=== PATIENT | male | born 1980 | race Caucasian/White ===

== ENCOUNTER 2023-12-22 07:15 | Emergency (ER) | payer OTHER, SELFPAY ==
--- NOTE | 2023-12-22 06:54 | ECG_ITS ---
[facility] Test Date: 2023-12-22 Pat Name: Damion Mckinnon Department: Room: Gender: Male Office Technician: : 1980 Requested By: Chandra De La Torre Order Number: [id number] Jennifer MD: Jonathan Carter M.D. Measurements Intervals [place] Rate: 67 P: 22 FL: 183 QRS: 90 QRSD: 103 T: 52 QT: 398 QTc: 422 Interpretive Statements SINUS RHYTHM No previous ECG available for comparison Electronically Signed On 12-22-2023 8:35:48 CDT by Jonathan Carter M.D. [id number]
[2023-12-22 07:19] VITALS: BP 132/69; PULSE 66; RESP 15; TEMP 36.6; O2SAT 94; BMI 44.3
--- NOTE | 2023-12-22 07:21 | XRR_ITS ---
PROCEDURE INFORMATION: Exam: XR Chest Exam date and time: 12/22/2023 7:31 AM Age: 43 years old Clinical indication: Cough and dyspnea; Patient HX: Hurts all over; Additional info: Dyspnea/cough. No history of recent trauma or surgery is provided. TECHNIQUE: Imaging protocol: Radiologic exam of the chest. 1image(s) are provided. Views: 1 view. COMPARISON: No relevant prior studies available. FINDINGS: Lungs: No lobar consolidation is appreciated. There is some subtle ground-glass, interstitial opacification for example of the right mid lung zone suggestive of some early interstitial, peribronchial inflammation. Pleural spaces: No pneumothorax or significant pleural effusion is appreciated. Heart/Mediastinum: The cardiomediastinal silhouette is upper normal in size.No cardiac decompensation is appreciated. Diaphragm: The hemidiaphragms are symmetric. Bones/joints: Osseous alignment is maintained. No displaced fracture or dislocation is appreciated. There is some thoracic spondylosis present. Soft tissues: No radiopaque foreign body or subcutaneous emphysema is appreciated. XR/XR chest 1V portable [id number] IMPRESSION: There is some early interstitial, peribronchial inflammatory appearance of the right mid lung zone. No lobar consolidation is appreciated.
--- NOTE | 2023-12-22 07:29 | W.ED.GENADLT ---
HPI - General Adult General: Chief complaint: General Medical Stated complaint: body aches Time Seen by Provider: 12/22/23 07:17 Source: patient Mode of arrival: ambulatory History of Present Illness: 43-year-old male presents emergency room complaining of generalized bodyaches. He does not localize any particular area that is more bothersome than another. He has had symptoms for over a month. He was seen at [facility] he has been referred to rheumatology. From discussing with him he said there is muscle damage he said the lab was elevated. Suspect it was a CPK we do not have access to those labs and initially but are seeking them. He denies any specific chest pain or shortness of breath no fever sweats chills. No abdominal pain no vomiting or diarrhea. No history of any inflammatory diseases. Onset (ago): month(s) Severity: severe Quality: aching Pain Consistency: constant Relieving factors: none Exacerbating factors: none Associated symptoms: Deny chest pain, confusion, cough, diaphoresis, decreased appetite, dyspnea, fevers/chills, headache(s), malaise, nausea, rash, palpitations, seizures, short of breath, syncope, vomiting or weakness Treatments prior to arrival: none Review of Systems Const: Denies: fever(s), chills, malaise or diaphoresis Card: Denies: chest pain, palpitations or syncope Resp: Denies: dyspnea GI: Denies: abdominal pain, nausea or vomiting : Denies: dysuria, urinary frequency or urinary urgency Musc: Denies: neck pain or back pain Skin/Breast: Denies: rash Neuro: Denies: headache(s) or confusion Physical Exam Const: COMMON NORMALS: no acute distress GENERAL APPEARANCE: cooperative and comfortable ORIENTATION/CONSCIOUSNESS: Yes awake, Yes oriented to person, Yes oriented to place and Yes oriented to time HENMT: COMMON NORMALS: normocephalic, atraumatic and hearing grossly normal bilaterally HEAD & SCALP: normocephalic and atraumatic Resp: COMMON NORMALS: normal respiratory effort, No retractions, No use of accessory muscles and clear to auscultation bilaterally AUSCULTATION: clear to auscultation bilaterally Cardio: COMMON NORMALS: regular rate, regular rhythm and No murmurs present (Cardio) RATE: regular rate RHYTHM: regular rhythm GI: COMMON NORMALS: Soft to palpation and No hepatosplenomegaly present AUSCULTATION: Yes normoactive bowel sounds PALPATION: Yes Soft to palpation, No Tenderness to palpation present (GI), No Guarding due to palpation present (GI) and Yes No hepatosplenomegaly present Extremity: COMMON NORMALS: normal to inspection, capillary refill normal, no clubbing, cyanosis or edema, no calf tenderness and no pedal edema Neuro: SENSORIUM/ORIENTATION: Yes oriented to person, Yes oriented to place and Yes oriented to time Skin: COMMON NORMALS: no rashes or lesions noted GENERAL SKIN EXAM: no rashes or lesions noted Course Vital Signs: Vital signs: Vital Signs Temperature 97.8 F 12/22/23 07:19 Pulse Rate 68 12/22/23 09:56 Respiratory Rate 15 12/22/23 07:19 Blood Pressure 104/66 12/22/23 09:56 Pulse Oximetry 98 12/22/23 09:56 Oxygen Delivery Me thod Room Air 12/22/23 08:08 MDM - General Adult Medical Decision Making Labs obtained from [facility] CPK was upper 300 is similar today sed rate and CRP are decreased from when he was at the office his hemoglobin and creatinine remained stable. No acute findings at this time given 10 mg dexamethasone started on p.o. prednisone taper to begin tomorrow we will put in a consult for rheumatology. Chest x-ray reviewed no significant respiratory symptoms at this time. Medical Records I reviewed the patient's medical records. Lab Data I reviewed the patient's lab results. 12/22/23 07:53 12/22/23 07:53 Radiology Impressions Chest X-Ray 12/22/23 07:21 IMPRESSION: There is some early interstitial, peribronchial inflammatory appearance of the right mid lung zone. No lobar consolidation is appreciated. Laboratory Results WBC 6.50 10^3/uL (3.29-11.43) 12/22/23 07:53 RBC 4.81 10^6/uL (3.85-5.65) 12/22/23 07:53 Hgb 14.60 g/dL (11.27-16.99) 12/22/23 07:53 Hct 42.6 % (37-53) 12/22/23 07:53 MCV 88.6 fl (82-101) 12/22/23 07:53 MCH 30.4 pg (27-33) 12/22/23 07:53 MCHC 34.3 g/dL (30-55) 12/22/23 07:53 RDW 11.9 % (12.1-15.1) L 12/22/23 07:53 Plt Count 235 10^3/cmm (157-399) 12/22/23 07:53 MPV 10.1 fL (7.4-10.4) 12/22/23 07:53 Neut % (Auto) 51.4 % 12/22/23 07:53 Lymph % (Auto) 33.8 % 12/22/23 07:53 Mercer % (Auto) 11.5 % 12/22/23 07:53 Eos % (Auto) 2.5 % 12/22/23 07:53 Baso % (Auto) 0.6 % 12/22/23 07:53 Neut # (Auto) 3.34 10^3/uL (1.8-7.7) 12/22/23 07:53 Lymph # (Auto) 2.2 10^3/uL (0.8-4.8) 12/22/23 07:53 Mercer # (Auto) 0.8 10^3/uL (0.2-0.9) 12/22/23 07:53 Eos # (Auto) 0.2 10^3/uL (0.0-0.8) 12/22/23 07:53 Baso # (Auto) 0.0 10^3/uL (0.0-0.1) 12/22/23 07:53 Nucleated RBC % (auto) 0 % 12/22/23 07:53 Nucleated RBCs # 0.0 /100WBC 12/22/23 07:53 ESR 4 mm/hr (0-10) 12/22/23 07:53 Sodium 139 mmol/L (136-145) 12/22/23 07:53 Potassium 4.1 mmol/L (3.5-5.1) 12/22/23 07:53 Chloride 102 mmol/L (98-107) 12/22/23 07:53 Carbon Dioxide 24 mmol/L (22-29) 12/22/23 07:53 Anion Gap 17.1 (5-19) 12/22/23 07:53 BUN 15 mg/dL (6-20) 12/22/23 07:53 Creatinine 0.8 mg/dL (0.7-1.2) 12/22/23 07:53 GFR Calculation 106.0 mL/min (90-130) 12/22/23 07:53 Glucose 105 mg/dL (65-115) 12/22/23 07:53 Calculated Osmolality 289 mOsm/kg (285-295) 12/22/23 07:53 Lactic Acid 1.2 mmol/L (0.5-2.2) 12/22/23 07:53 Calcium 8.6 mg/dL (8.5-10.5) 12/22/23 07:53 Total Bilirubin 1.0 mg/dL (0.15-1.2) 12/22/23 07:53 AST 24 U/L (0-40) 12/22/23 07:53 ALT 35 U/L (0-41) 12/22/23 07:53 Alkaline Phosphatase 90 U/L (40-130) 12/22/23 07:53 Creatine Kinase 382 U/L (39-308) H* 12/22/23 07:53 Troponin T Baseline 10 ng/L (0-15) 12/22/23 07:53 C-Reactive Protein 3.0 mg/L (0.0-4.9) 12/22/23 07:53 Total Protein 7.0 g/dL (6.6-8.7) 12/22/23 07:53 Albumin 4.4 g/dL (3.5-5.2) 12/22/23 07:53 Globulin 2.6 g/dL (1.3-4.6) 12/22/23 07:53 Lipase 19 U/L (13-60) 12/22/23 07:53 Urine Color Straw (Yellow) 12/22/23 08:57 Urine Appearance Clear (CLEAR) 12/22/23 08:57 Urine pH 5 (5-7) 12/22/23 08:57 Ur Specific Java 1.005 (1.005-1.030) 12/22/23 08:57 Urine Protein Neg (Negative) 12/22/23 08:57 Urine Glucose (UA) Norm (Normal) 12/22/23 08:57 Urine Ketones Negative (Negative) 12/22/23 08:57 Urine Blood Neg (Negative) 12/22/23 08:57 Urine Nitrate Negative (Negative) 12/22/23 08:57 Urine Bilirubin Neg (Negative) 12/22/23 08:57 Urine Urobilinogen Neg mg/dL (Negative) 12/22/23 08:57 Ur Leukocyte Esterase Negative (Negative) 12/22/23 08:57 Coronavirus 229E (PCR) Not detected (NOT DETECT) 12/22/23 08:10 Influenza Type A Ag negative (Negative) 12/22/23 08:10 Influenza Type B Ag negative (Negative) 12/22/23 08:10 SARS-CoV-2 (PCR) Not detected (NOT DETECT) 12/22/23 08:10 All radiology interpretation(s) finalized by discharge Discharge Plan Discharge Patient Disposition: Home Clinical Impression: Myositis, Elevated CPK Condition: Stable Prescriptions: New prednisone 20 mg tablet 20 mg PO TID Qty: 15 0RF Rx Instructions: 1 p.o. 3 times daily x3 days, 1 p.o. twice daily x2 days, 1 p.o. daily x2 days Discharge Orders: Discharge ED (Routine); Ordered 12/22/23 Ordered By: Chandra Angulo Referrals: Mike Holt MD [Primary Care Provider] - Patient Instructions: Opioid Safety, Pain Management Activity Restrictions/Additional Instructions: Thank you for choosing [facility] for your healthcare needs today. Please realize this is an emergency room and that we are providing you with a medical screening exam and this may not be complete and all inclusive of all the testing and or work up that you may need to determine your ailment or severity of your illness. It is very important that you follow up as instructed or that you return to the Emergency Department should you have concerns or if your condition changes or worsens in any way. You were seen today for generalized muscle aches. Your CPK is mildly elevated consistent with laboratory result that you had while at [facility]. You have inflammatory markers are decreased the remainder of your labs including kidney function and hemoglobin are all normal. You were given a single dose of steroid here and a steroid oral taper to begin tomorrow follow-up with rheumatology as scheduled with by your primary care doctor Coding Level of Care Code ED Customer Associate for Daisy Bedoya
[2023-12-22] MEDS: sodium chloride 0.9% 1,000 ML 999 ML IV (08:01)
[2023-12-22 08:03] LABS: Basophils % 0.6 %; Eosinophils # 0.2 10^3/uL (0.0-0.8); Eosinophils % 2.5 %; Hematocrit 42.6 % (37-53); Lymphocytes # 2.2 10^3/uL (0.8-4.8); Lymphocytes % 33.8 %; Mean Corpuscular HGB Conc 34.3 g/dL (30-55); Mean Corpuscular Hemoglobin 30.4 pg (27-33); Mean Corpuscular Volume 88.6 fl (82-101); Mean Platelet Volume 10.1 fL (7.4-10.4); Monocytes # 0.8 10^3/uL (0.2-0.9); Monocytes % 11.5 %; Neutrophils # 3.34 10^3/uL (1.8-7.7); Neutrophils % 51.4 %; Nucleated Red Blood Cells % 0 %; Platelet Count 235 10^3/cmm (157-399); Red Blood Count 4.81 10^6/uL (3.85-5.65); Red Cell Distribution Width 11.9 % (12.1-15.1)
[2023-12-22 08:08] VITALS: BP 131/81; PULSE 63; O2SAT 96
[2023-12-22 08:11] LABS: Erythrocyte Sedimentation Rate 4 mm/hr (0-10)
[2023-12-22 08:19] LABS: Lactic Sepsis W/Reflex 1.2 mmol/L (0.5-2.2)
[2023-12-22 08:20] LABS: Alanine Aminotransferase 35 U/L (0-41); Albumin Level 4.4 g/dL (3.5-5.2); Alkaline Phosphatase 90 U/L (40-130); Anion Gap 17.1 (5-19); Aspartate Amino Transferase 24 U/L (0-40); Blood Urea Nitrogen 15 mg/dL (6-20); Calcium 8.6 mg/dL (8.5-10.5); Carbon Dioxide 24 mmol/L (22-29); Chloride 102 mmol/L (98-107); Creatinine Clr Calc Pharmacy 164.7816; Globulin 2.6 g/dL (1.3-4.6); Glucose 105 mg/dL (65-115); Lipase 19 U/L (13-60); Osmolality Calculated 289 mOsm/kg (285-295); Potassium 4.1 mmol/L (3.5-5.1); Sodium 139 mmol/L (136-145)
[2023-12-22 08:22] LABS: Troponin(5th) Baseline 10 ng/L (0-15)
[2023-12-22 08:37] LABS: Influenza A by IFA negative (Negative); Influenza B by IFA negative (Negative)
[2023-12-22 08:38] LABS: Creatine Phosphokinase 382 U/L (39-308)
[2023-12-22 09:02] LABS: Add Urine Microscopic? NO; Charge for UA Resulting for Rev
[2023-12-22] MEDS: ketorolac 30 mg/mL INJ IVP (09:28)
[2023-12-22 09:32] LABS: Bilirubin Urine Neg (Negative); Blood Urine Neg (Negative); Glucose Urine UA Norm (Normal); Ketones Urine Negative (Negative); Leukocyte Esterase Urine Negative (Negative); Nitrate Urine Negative (Negative); Protein Urine Neg (Negative); Specific Gravity, Urine 1.005 (1.005-1.030); Urine Appearance Clear (CLEAR); Urine Color Straw (Yellow); Urobilinogen Urine Neg (Negative); pH Urine 5 (5-7)
--- NOTE | 2023-12-22 09:50 | DCPLANNER ---
A message was sent to rheumatology on 12/22/23 at 0950. [facility] to contact patient for appt
[2023-12-22] MEDS: dexamethasone 10 mg/mL INJ IM (09:54)
[2023-12-22 09:56] VITALS: BP 104/66; PULSE 68; O2SAT 98
[2023-12-22 10:07] LABS: Adenovirus Not Detected (NOT DETECT); Chlamydia Pneumoniae Not Detected (NOT DETECT); Coronavirus 229E,HKU1,NL63,OC4 Not Detected (NOT DETECT); Human Metapneumovirus Not Detected (NOT DETECT); Human Rhinovirus/Enterovirus Not Detected (NOT DETECT); Influenza A Not Detected (NOT DETECT); Influenza A H1 Not Detected (NOT DETECT); Influenza A H1-2009 Not Detected (NOT DETECT); Influenza A H3 Not Detected (NOT DETECT); Influenza B Not Detected (NOT DETECT); Mycoplasma Pneumoniae Not Detected (NOT DETECT); Parainfluenza Virus Type 1 Not Detected (NOT DETECT); Parainfluenza Virus Type 2 Not Detected (NOT DETECT); Parainfluenza Virus Type 3 Not Detected (NOT DETECT); Parainfluenza Virus Type 4 Not Detected (NOT DETECT); Respiratory Syncytial Virus A Not Detected (NOT DETECT); Respiratory Syncytial Virus B Not Detected (NOT DETECT); SARS-COV-2 Not Detected (NOT DETECT)
== END 2023-12-22 09:58 | disposition home or self-care (01) ==
PROVIDERS: Emergency Provider Family Medicine; PCP Family Medicine
DX: M60.9 Myositis, unspecified (principal); R74.8 Abnormal levels of other serum enzymes; Z11.52 Encounter for screening for COVID-19
CPT/HCPCS: 36415; 71045; 80053; 81003; 82550; 83605; 83690; 84484; 85025; 85651; 86140; 87635; 87804; 93005; 96361; 96372; 96374; 99285; J1100; J1885; J7030

== ENCOUNTER 2024-04-05 23:05 | Emergency (ER) | payer OTHER, SELFPAY ==
[2024-04-05 23:07] VITALS: BP 155/105; PULSE 76; RESP 16; TEMP 36.6; O2SAT 96; BMI 43.4
--- NOTE | 2024-04-05 23:21 | USR_ITS ---
PROCEDURE INFORMATION: Exam: US Duplex Left Lower Extremity Veins, Limited Exam date and time: 04/05/2024 11:42 PM Age: 44 years old Clinical indication: Leg, lower; Left; Patient HX: No history of dvt per patient. Pain in entire below knee lt leg. No particular area, pain x 5 hours. No trauma. No erythema. No edema. ; Additional info: Lle pain/atraumatic TECHNIQUE: Imaging protocol: Real-time duplex ultrasound of the left extremity with 2-D winn scale, color Doppler flow and spectral waveform analysis including responses to compression and other maneuvers (when performed) with image documentation. Limited exam focused on the left lower extremity veins. COMPARISON: No relevant prior studies available. FINDINGS: Left deep veins: Unremarkable. The common femoral, femoral, proximal profunda femoral and popliteal veins are patent without thrombus. Normal Doppler waveforms. Normal compressibility and/or augmentation response. Superficial veins: Greater saphenous vein at the saphenofemoral junction is patent without thrombus. Soft tissues: Unremarkable. US/CV venous duplex [facility] [id number] IMPRESSION: No evidence of deep vein thrombosis.
--- NOTE | 2024-04-05 23:24 | ED_ITS ---
HPI - Extremity Problem General: Chief complaint: Extremity Problem,Nontraumatic Stated complaint: Left Leg Pain Time Seen by Provider: 04/05/24 23:09 Source: patient Mode of arrival: ambulatory Limitations: no limitations History of Present Illness: Patient is a 44-year-old male presenting to the emergency department complaining of atraumatic left lower extremity pain beginning tonight. Patient states he was just sitting down when he had sudden onset of pain, which started in the left knee and has spread distally. He has no history of blood clots and denies any recent history of long travel, plane travel, or other reportable history. He did take an oxycodone for his pain that he had leftover from a previous surgery, and states this did not help. He does have a history of bunionectomy on the left foot. Currently his pain is noted to be diffuse at this time, worse at the left calf. He has never had this issue before. No recent trauma. Pain currently is a 10/10 and is noted to be aching and throbbing. No other alleviating or exacerbating factors noted at this time. MD Complaint: extremity pain (Left lower extremity) Onset (ago): minute(s) Pain Consistency: constant Severity scale (1-10): 10 Quality: aching and other (Throbbing) Radiation: distal Associated symptoms: Reports no associated symptoms; Deny chest pain, fever(s) or rash Review of Systems General: Reports: 10 or more systems reviewed and unremarkable except in HPI and below Const: Denies: fever(s), chills or fatigue Eyes: Denies: change in vision ENMT: Denies: throat pain, ear or mastoid pain or nasal discharge Card: Denies: chest pain, palpitations, swelling of feet/ankles or lightheadedness Resp: Denies: dyspnea, productive cough or wheezing GI: Denies: abdominal pain, nausea, vomiting, diarrhea or constipation : Denies: flank pain, difficulty urinating, dysuria or urinary frequency Musc: Reports: extremity pain (LLE); Denies: neck pain or back pain Skin/Breast: Denies: rash Neuro: Denies: headache(s), numbness in extremities or weakness in extremities PFS ED PFSH: Medical History Psychiatric care Physical Exam Const: COMMON NORMALS: no acute distress, patient oriented x3 and no limitations GENERAL APPEARANCE: cooperative, comfortable and well developed ORIENTATION/CONSCIOUSNESS: Yes awake, Yes oriented to person, Yes oriented to place and Yes oriented to time HENMT: COMMON NORMALS: normocephalic, atraumatic and hearing grossly normal bilaterally HEAD & SCALP: normocephalic and atraumatic Eye: COMMON NORMALS: Equal, round and reactive pupils present, EOMs intact bilaterally and conjunctivae normal CONJUNCTIVA: Yes conjunctivae normal PUPIL: Yes Equal, round and reactive pupils present Neck/C-Spine: COMMON NORMALS: full ROM, supple and no JVD Resp: COMMON NORMALS: normal respiratory effort, No retractions, No use of accessory muscles and clear to auscultation bilaterally AUSCULTATION: clear to auscultation bilaterally Cardio: COMMON NORMALS: no JVD, regular rate, regular rhythm, No clicks present (Cardio), No murmurs present (Cardio) and No rub (Cardio) RATE: regular rate RHYTHM: regular rhythm Extremity: NARRATIVE EXTREMITY EXAM: Left calf tenderness, no palpable cord. Range of motion limited due to his pain. No signs of trauma. Postop scar present to the dorsum of the left foot. No joint laxity. Neuro: COMMON NORMALS: patient oriented x3, moves all extremities, no focal motor deficits and no sensory deficits noted SENSORIUM/ORIENTATION: Yes oriented to person, Yes oriented to place and Yes oriented to time Psych: COMMON NORMALS: mental status grossly normal and Normal thought process present THOUGHT PROCESS: Normal thought process present Skin: COMMON NORMALS: no rashes or lesions noted GENERAL SKIN EXAM: no rashes or lesions noted Course Vital Signs: Vital signs: Vital Signs Temperature 97.8 F 04/05/24 23:07 Pulse Rate 61 04/06/24 00:44 Respiratory Rate 17 04/06/24 00:44 Blood Pressure 127/92 04/06/24 00:44 Pulse Oximetry 97 04/06/24 00:44 Oxygen Delivery Me thod Room Air 04/06/24 00:44 MDM - Extremity (Nontraumatic) Medical Decision Making Patient presented for atraumatic left lower extremity pain beginning just prior to arrival. No history of blood clots and no concerning history. Vitals were normal. Physical examination just revealed some tenderness to palpation of the left lower extremity, worse at the calf. Ultrasound was negative for DVT. Patient is instructed to follow-up with primary care for further evaluation and return with any new or worsening. XR interpretation done by ED provider, pending radiology final review Discharge Plan Discharge Patient Disposition: Home Clinical Impression: Acute pain of left lower extremity Condition: Stable Prescriptions: No Action prednisone 20 mg tablet 20 mg PO TID Qty: 15 0RF Rx Instructions: 1 p.o. 3 times daily x3 days, 1 p.o. twice daily x2 days, 1 p.o. daily x2 days Discharge Orders: Discharge ED (Routine); Ordered 04/06/24 Ordered By: Domingo Mishra Referrals: Mike Holt MD [Primary Care Provider] - Discharge Diet: Usual diet Discharge Activity: Increase activity as tolerated Patient Instructions: Opioid Safety, Pain Management Activity Restrictions/Additional Instructions: Ultrasound today negative for blood clot. Continue taking your prescribed pain medications at home. Follow-up with primary care provider for further evaluation. Return with any new or worsening symptoms. Stand Alone Forms: Work/School Release Coding Level of Care Code ED Softball Umpire for Daisy Bedoya
[2024-04-05] MEDS: ketorolac 60 mg/2 mL INJ IM (23:35)
[2024-04-06 00:44] VITALS: BP 127/92; PULSE 61; RESP 17; O2SAT 97
[2024-04-06 01:10] VITALS: BP 164/91; PULSE 60; O2SAT 95
== END 2024-04-06 01:11 | disposition home or self-care (01) ==
PROVIDERS: Emergency Provider Physician Assistant; PCP Family Medicine
DX: M79.605 Pain in left leg (principal)
CPT/HCPCS: 93971; 96372; 99284; J1885

== ENCOUNTER 2024-04-09 22:23 | Emergency (ER) | payer OTHER, SELFPAY ==
[2024-04-09 22:27] VITALS: BP 152/89; PULSE 74; RESP 16; TEMP 36.6; O2SAT 97
--- NOTE | 2024-04-10 01:11 | XRR_ITS ---
PROCEDURE INFORMATION: Exam: XR Left Knee Exam date and time: 04/10/2024 1:39 AM Age: 44 years old Clinical indication: Pain; Knee; Left TECHNIQUE: Imaging protocol: Radiologic exam of the left knee. Views: 3 views. COMPARISON: [place] [id number] 04/05/2024 11:42 PM FINDINGS: Bones/joints: Normal. Soft tissues: Normal. XR/XR knee LT 3V* [id number] IMPRESSION: No acute findings.
[2024-04-10] MEDS: HYDROcodone-acetaminophen 5-325 mg Tablet 1 TAB PO (01:17)
[2024-04-10 01:19] VITALS: BP 133/71; PULSE 61; RESP 16; O2SAT 96
--- NOTE | 2024-04-10 01:28 | ED_ITS ---
HPI - Extremity Problem General: Chief complaint: Extremity Injury, Lower Stated complaint: pain left knee to toes Time Seen by Provider: 04/10/24 00:55 Source: patient Mode of arrival: ambulatory Limitations: no limitations History of Present Illness: 44-year-old male states been having left knee pain for over a week now. He states that it is worse with movement pain is sharp rates it a 7 out of 10 he was seen here a week ago had an ultrasound that ruled out a DVT he states he saw urgent care and had a negative x-ray there. He denies any new injuries he denies any fever he states that the pain just has not gotten any better. Associated symptoms: Deny chest pain, fever(s) or rash Review of Systems Const: Denies: fever(s), chills, body aches or change in appetite ENMT: Denies: throat pain or dental pain Card: Denies: chest pain Resp: Denies: dyspnea GI: Denies: abdominal pain, nausea, vomiting or diarrhea Musc: Reports: extremity pain; Denies: neck pain or back pain Skin/Breast: Denies: rash Neuro: Denies: headache(s) PFSH ED PFSH: Medical History Psychiatric care Physical Exam Const: COMMON NORMALS: no acute distress, patient oriented x3 and healthy appearing HENMT: COMMON NORMALS: normocephalic and atraumatic HEAD & SCALP: normocephalic and atraumatic Neck/C-Spine: COMMON NORMALS: full ROM and supple Chest: COMMONS NORMALS: normal inspection of the chest Resp: COMMON NORMALS: normal respiratory effort Extremity: NARRATIVE EXTREMITY EXAM: Left knee exam is benign did range of motion no pain with range of motion or palpation no warmth to touch Neuro: COMMON NORMALS: patient oriented x3, moves all extremities and no focal motor deficits Psych: COMMON NORMALS: mental status grossly normal, Normal thought process present and cooperative THOUGHT PROCESS: Normal thought process present Skin: COMMON NORMALS: no rashes or lesions noted and no wounds GENERAL SKIN EXAM: no rashes or lesions noted Course Vital Signs: Vital signs: Vital Signs Temperature 98 F 04/09/24 22:27 Pulse Rate 74 04/09/24 22:27 Respiratory Rate 16 04/09/24 22:27 Blood Pressure 152/89 04/09/24 22:27 Pulse Oximetry 97 04/09/24 22:27 MDM - Extremity (Nontraumatic) Medical Decision Making Patient presents with left knee pain has been going on for weeks exam here is benign he has no warmth to touch no signs of a septic joint and no pain with range of motion will prescribe pain meds we will get him follow-up orthopedics did prescribe him crutches he is to weight-bear as tolerated. Medical Records I reviewed the patient's medical records. XR interpretation done by ED provider, pending radiology final review ED provider radiology interpretation(s): X-ray knee no acute maladies Discharge Plan Discharge Patient Disposition: Home Clinical Impression: Knee pain, left Qualifiers: Chronicity: acute Qualified Code(s): M25.562 - Pain in left knee Condition: Stable Prescriptions: New hydrocodone-acetaminophen 5-325 mg tablet 1 tab PO Q6H PRN (Reason: pain) Qty: 14 0RF No Action prednisone 20 mg tablet 20 mg PO TID Qty: 15 0RF Rx Instructions: 1 p.o. 3 times daily x3 days, 1 p.o. twice daily x2 days, 1 p.o. daily x2 days Discharge Orders: Discharge ED (Routine); Ordered 04/10/24 Ordered By: Carlos Downey Referrals: Mike Holt MD [Primary Care Provider] - Marcelino Ye DO [Physician] - 4-7 days Discharge Diet: Advance as tolerated Discharge Activity: Increase activity as tolerated and Use walker/crutches as instructed Patient Instructions: Knee Pain (ED), Opioid Safety Coding Level of Care Code ED Therapeutic Consultant for Daisy Bedoya
[2024-04-10 01:45] VITALS: BP 131/75; PULSE 59; RESP 15; O2SAT 99
--- NOTE | 2024-04-10 09:39 | DCPLANNER ---
Message sent to [facility] for Left knee pain.
== END 2024-04-10 02:07 | disposition home or self-care (01) ==
PROVIDERS: Emergency Provider Emergency Medicine; PCP Family Medicine
DX: M25.562 Pain in left knee (principal)
CPT/HCPCS: 73562; 99283

== ENCOUNTER → 2024-04-24 16:16 | Outpatient (BNVA) | payer OTHER, SELFPAY | PROVIDERS: PCP Family Medicine; Visit Provider Student in an Organized Health Care Education/Training Program | DX: M25.562 Pain in left knee (principal); S83.8X2A Sprain of other specified parts of left knee, initial encounter; X58.XXXA Exposure to other specified factors, initial encounter | CPT/HCPCS: 73560; 73565; 84550 ==

== ENCOUNTER 2024-06-03 00:03 | Emergency (ER) | payer OTHER, SELFPAY ==
[2024-06-03 00:08] VITALS: BP 169/81; PULSE 70; RESP 16; TEMP 36.8; O2SAT 97; BMI 41.9
[2024-06-03 00:16] VITALS: BP 169/81; PULSE 70; RESP 16; O2SAT 97
[2024-06-03] MEDS: ketorolac 60 mg/2 mL INJ IM (00:49)
--- NOTE | 2024-06-03 00:54 | W.ED.URI ---
HPI - URI/Sore Throat General: Chief Complaint: Upper Respiratory Infection Stated Complaint: cough body aches head congestion Time Seen by Provider: 06/03/24 00:10 Source: patient Mode of arrival: ambulatory Limitations: no limitations History of Present Illness: Patient presents emergency department today for evaluation treatment of various upper respiratory symptoms and bodyaches which started on Tuesday. Patient states that he had had a doctor's appointment Tuesday in [place] and when they had come home that evening, started having onset of headache. Since that time he has developed cough, congestion, headache, body aches, and complaints of low-grade fever. He has been taking some emdv-ibx-njoxyxv cough and cold medication without noticeable improvement of his symptoms. No known direct ill contacts. He does note that his is also sick now with similar symptoms who is also being seen and evaluated in the emergency department tonight. Patient denies any history of asthma. He is still eating and drinking without difficulty though notes a decrease in appetite. Related Data Home Medications Medication Instructions Recorded Confirmed buspirone 5 mg tablet 5 mg PO BID 04/24/24 04/24/24 cholecalciferol (vitamin D3) 10 10 mcg PO DAILY 04/24/24 04/24/24 mcg (400 unit) capsule guanfacine 2 mg tablet 2 mg PO DAILY 04/24/24 04/24/24 lisinopril 2.5 mg tablet 2.5 mg PO DAILY 04/24/24 04/24/24 pantoprazole 20 mg tablet,delayed 20 mg PO DAILY 04/24/24 04/24/24 release Previous Rx's Medication Instructions Recorded hydrocodone 5 mg-acetaminophen 325 1 tab PO Q6H PRN pain #14 tabs 04/10/24 mg tablet doxycycline hyclate 100 mg tablet 100 mg PO BID 10 days #20 tabs 06/03/24 Allergies Allergy/AdvReac Type Severity Reaction Status Date / Time Penicillins Allergy Unknown Verified 06/03/24 00:16 Review of Systems General: Reports: 10 or more systems reviewed and unremarkable except in HPI and below PFSH ED PFSH: Medical History Psychiatric care Social History Smoking and tobacco/nicotine status: never used tobacco/nicotine Physical Exam Const: COMMON NORMALS: no acute distress, patient oriented x3 and alert HENMT: OTHER: TMs translucent bilaterally without erythema or bulging. EACs are clear. Pharynx is minimally erythematous. Mucous membranes are moist. Eye: COMMON NORMALS: Equal, round and reactive pupils present, EOMs intact bilaterally and conjunctivae normal CONJUNCTIVA: Yes conjunctivae normal PUPIL: Yes Equal, round and reactive pupils present Neck/C-Spine: COMMON NORMALS: no JVD Lymph: LYMPHATIC: no lymphadenopathy noted Resp: COMMON NORMALS: normal respiratory effort, No retractions and No use of accessory muscles Cardio: COMMON NORMALS: no JVD and regular rate RATE: regular rate : COMMON NORMALS: Yes no CVA tenderness BLADDER/KIDNEY EXAM: Yes no CVA tenderness Back/Pelvis: COMMON NORMALS: no CVA tenderness, thoracic and lumbar spine normal to inspection and thoraco-lumbar ROM normal Extremity: COMMON NORMALS: normal to inspection, full ROM and no pedal edema Neuro: COMMON NORMALS: patient oriented x3 SENSORIUM/ORIENTATION: Yes alert Skin: COMMON NORMALS: no rashes or lesions noted and turgor normal GENERAL SKIN EXAM: no rashes or lesions noted and turgor normal Course Vital Signs: Vital signs: Vital Signs Temperature 98.3 F 06/03/24 00:08 Pulse Rate 70 06/03/24 00:16 Respiratory Rate 16 06/03/24 00:16 Blood Pressure 169/81 06/03/24 00:16 Pulse Oximetry 97 06/03/24 00:16 Oxygen Delivery Me thod Room Air 06/03/24 00:08 MDM - URI/Sore Throat Medical Decision Making Patient's physical examination is generally unremarkable. No acute findings were noted however, patient did test positive for COVID. This does correlate with the progression of illness and symptomatology. However, patient became ill on Tuesday. He is too far out the window for Paxil bid. However, I would not expect symptoms of COVID longer than the next couple of days. We discussed the development of secondary bacterial infections such as sinusitis or pneumonias. So patient does not have to return to the acute setting if he continues to have worsening symptoms greater than the next 3 to 5 days, I am sending in a prescription for doxycycline to his preferred pharmacy. Explained that this will cover both lower respiratory tract infection and sinus infections if he needs treatment for developing infection. Otherwise, he is to continue to rest, hydrate, take ryue-cgj-civuvuk medications for his symptoms. Patient verbalizes understanding and agreement to treatment plan. Differential Diagnosis Likely upper respiratory infection and viral infection; Unlikely croup, otitis media, bronchitis or influenza Lab Data Laboratory Results Influenza Type A Ag negative (Negative) 06/03/24 01:10 Influenza Type B Ag negative (Negative) 06/03/24 01:10 SARS-CoV-2 Ag (Rapid) positive (Negative) H 06/03/24 00:41 No radiology studies performed this visit Discharge Plan Discharge Patient Disposition: Home Clinical Impression: COVID-19 Condition: Stable Prescriptions: New doxycycline hyclate 100 mg tablet 100 mg PO BID 10 Days Qty: 20 0RF No Action buspirone 5 mg tablet 5 mg PO BID pantoprazole 20 mg tablet,delayed release (DR/EC) 20 mg PO DAILY cholecalciferol (vitamin D3) 10 mcg (400 unit) capsule 10 mcg PO DAILY lisinopril 2.5 mg tablet 2.5 mg PO DAILY guanfacine 2 mg tablet 2 mg PO DAILY hydrocodone-acetaminophen 5-325 mg tablet 1 tab PO Q6H PRN (Reason: pain) Qty: 14 0RF Discharge Orders: Discharge ED (Routine); Ordered 06/03/24 Ordered By: Lucía Gallagher Referrals: Mike Holt MD [Primary Care Provider] - Discharge Diet: Usual diet Discharge Activity: Increase activity as tolerated Patient Instructions: Droplet Precautions (ED), COVID-19 (Coronavirus Disease 2019) (ED) Activity Restrictions/Additional Instructions: Your physical examination found no acute concerns but, your COVID test was positive. This does correlate with the progression of your illness and the symptoms you are experiencing. Unfortunately, you are outside the window for Paxlovid-the antiviral medication for COVID. We encourage you to rest, stay hydrated, and continue to use asiw-obn-fsgukvn medications for your symptoms. However, it is possible that in the next 3 to 5 days you could begin to develop secondary bacterial infections such as sinusitis or lower respiratory tract infection. I am sending a prescription to your preferred pharmacy for doxycycline. This antibiotic covers for either sinus infection or lower respiratory tract infection should they develop. This prevents you from needing to return back to the acute setting for reevaluation to get treatment for developing secondary infection. If you do not need the antibiotic and are feeling significantly improved in the next couple of days you do not need to pick it up from the pharmacy. Continue to monitor your symptoms closely and follow-up with your primary care doctor if needed. Coding Level of Care Code ED Inspector Production [employer] for Daisy Bedoya
[2024-06-03 01:20] LABS: SARS Covid-2 Antigen positive (Negative)
[2024-06-03 01:33] LABS: Influenza A by IFA negative (Negative); Influenza B by IFA negative (Negative)
[2024-06-03 01:58] VITALS: BP 124/75; PULSE 63; RESP 17; O2SAT 97
== END 2024-06-03 02:00 | disposition home or self-care (01) ==
PROVIDERS: Emergency Provider Physician Assistant; PCP Family Medicine
DX: U07.1 COVID-19 (principal)
CPT/HCPCS: 87426; 87804; 96372; 99284; J1885

== ENCOUNTER 2024-07-04 06:59 | Outpatient (CLI) | payer OTHER, SELFPAY ==
--- NOTE | 2024-07-04 07:15 | MR_ITS ---
WS: [id number] MRI LEFT KNEE HISTORY: left knee pain/injury COMPARISON: Radiograph 04/24/2024 Anterior cruciate ligament: Intact. Posterior cruciate ligament: Intact. Medial collateral ligament: Intact. Posterior lateral corner structures: Intact. Medial menisci: Intact. Normal signal, size and shape. Lateral meniscus: Intact. Normal signal, size and shape. Extensor mechanism: Distal quadriceps tendon and patellar tendons are intact. Fluid and soft tissue: No joint effusion. No Schaefer's cyst. Osseous and articular structures: Patellofemoral compartment: Normal. Medial compartment: No significant joint space narrowing. Very minimal surface fraying along the cart ilage. No full-thickness defect. No marrow edema. Lateral compartment: Normal. MR/MR knee LT wo con* [id number] IMPRESSION: 1. No marrow edema or fracture. 2. No meniscal tear. 3. Normal ACL.
== END 2024-07-04 07:00 | disposition home or self-care (01) ==
LOC: RAD 06:59
PROVIDERS: PCP Family Medicine; Visit Provider Student in an Organized Health Care Education/Training Program
DX: S83.8X2A Sprain of other specified parts of left knee, initial encounter (principal); X58.XXXA Exposure to other specified factors, initial encounter
CPT/HCPCS: 73721

== ENCOUNTER 2024-08-17 13:59 | Outpatient (CLI) | payer OTHER, SELFPAY | END 2024-08-17 14:00 | disposition home or self-care (01) | LOC: SPT 14:01 | PROVIDERS: Visit Provider Physician Assistant | DX: Z46.89 Encounter for fitting and adjustment of other specified devices (principal); S83.8X2S Sprain of other specified parts of left knee, sequela; X58.XXXS Exposure to other specified factors, sequela | CPT/HCPCS: L1812 ==

== ENCOUNTER 2024-10-18 09:02 | Emergency (ER) | payer OTHER, SELFPAY ==
[2024-10-18 09:16] VITALS: BP 132/82; PULSE 59; RESP 17; TEMP 36.5; O2SAT 96; BMI 41.9
[2024-10-18 10:14] VITALS: BP 128/70; PULSE 58; O2SAT 100
--- NOTE | 2024-10-18 10:26 | CT_ITS ---
WS: [id number] CT HEAD NONCONTRAST HISTORY: pleitez TECHNIQUE: Contiguous axial imaging performed through the brain. Bone and soft tissue windows. Sagitt al and coronal reformats reviewed. All CT scans at [facility] use at least one of these dose optimization techniques: automated exposure control; mA and/or kV adjustment per patient size (includ es targeted exams where dose is matched to clinical indication); or iterative reconstruction. DLP: 1201.63 mGy.cm COMPARISON: None available. No acute intracranial hemorrhage, midline shift or mass effect. Mild atrophy and mild small vessel disease. No prior infarct. Ventricles: Normal size with no hydrocephalus. No inferior displacement of the cerebellar tonsils. Paranasal sinuses: As visualized are clear. Mastoid air cells: Well pneumatized. Calvarium and scalp: Skull is intact with no soft tissue edema or swelling. CT/CT head wo con* [id number] IMPRESSION: 1. No acute intracranial hemorrhage or edema. 2. Mild cerebral atrophy and small vessel disease. 3. No skull fracture or hematoma.
--- NOTE | 2024-10-18 10:29 | W.ED.HEATRA ---
HPI - Head Injury General: Chief complaint: Head Injury Stated complaint: head injury Time Seen by Provider: 10/18/24 09:55 Source: patient Mode of arrival: ambulatory Limitations: no limitations History of Present Illness: 44-year-old male states he did hit his head yesterday on a shelf. He states since then he has been having a headache he rates a 10 out of 10. He states he had some nausea as well he denies vomiting denies passing out denies any other pain elsewhere. Associated symptoms: Deny neck pain or vomiting Related Data Home Medications Medication Instructions Recorded Confirmed cholecalciferol (vitamin D3) 10 10 mcg PO DAILY 04/24/24 10/18/24 mcg (400 unit) capsule pantoprazole 20 mg tablet,delayed 20 mg PO DAILY 04/24/24 10/18/24 release buspirone 30 mg tablet 30 mg PO BID 10/18/24 10/18/24 guanfacine 1 mg tablet 1 mg PO TID 10/18/24 10/18/24 lisinopril 10 mg tablet 10 mg PO DAILY 10/18/24 10/18/24 Previous Rx's Medication Instructions Recorded Left Hinged Knee Brace #1 ea 08/17/24 Allergies Allergy/AdvReac Type Severity Reaction Status Date / Time Penicillins Allergy Unknown Verified 08/14/24 13:08 Review of Systems Const: Denies: fever(s), chills, body aches or change in appetite Eyes: Denies: blurry vision or eye discomfort ENMT: Denies: throat pain or dental pain Card: Denies: chest pain Resp: Denies: dyspnea GI: Denies: abdominal pain, vomiting or diarrhea Musc: Denies: neck pain or back pain Skin/Breast: Denies: rash Neuro: Reports: headache(s) [facility] ED PFSH: Medical History Psychiatric care Social History Smoking and tobacco/nicotine status: never used tobacco/nicotine Physical Exam Const: COMMON NORMALS: no acute distress, patient oriented x3 and healthy appearing HENMT: COMMON NORMALS: normocephalic and atraumatic HEAD & SCALP: normocephalic and atraumatic Eye: COMMON NORMALS: Equal, round and reactive pupils present and conjunctivae normal CONJUNCTIVA: Yes conjunctivae normal PUPIL: Yes Equal, round and reactive pupils present Neck/C-Spine: COMMON NORMALS: full ROM and supple Chest: COMMONS NORMALS: normal inspection of the chest Resp: COMMON NORMALS: normal respiratory effort Cardio: COMMON NORMALS: regular rate, regular rhythm and No murmurs present (Cardio) RATE: regular rate RHYTHM: regular rhythm Extremity: COMMON NORMALS: normal to inspection and full ROM Neuro: COMMON NORMALS: patient oriented x3, moves all extremities and no focal motor deficits Psych: COMMON NORMALS: mental status grossly normal, Normal thought process present and cooperative THOUGHT PROCESS: Normal thought process present Skin: COMMON NORMALS: no rashes or lesions noted and no wounds GENERAL SKIN EXAM: no rashes or lesions noted Course Vital Signs: Vital signs: Vital Signs Temperature 97.7 F 10/18/24 09:16 Pulse Rate 58 L 10/18/24 10:14 Respiratory Rate 17 10/18/24 09:16 Blood Pressure 128/70 10/18/24 10:14 Pulse Oximetry 100 10/18/24 10:14 Oxygen Delivery Me thod Room Air 10/18/24 10:14 MDM - Head Injury Medcial Decision Making Patient presents here with a closed head injury he has been well-appearing here imaging here is negative patient stable for discharge follow-up PCP return if worsening. Medical Records I reviewed the patient's medical records. Lab Data I reviewed the patient's lab results. Radiology Impressions Head CT 10/18/24 10:26 IMPRESSION: 1. No acute intracranial hemorrhage or edema. 2. Mild cerebral atrophy and small vessel disease. 3. No skull fracture or hematoma. All radiology interpretation(s) finalized by discharge Discharge Plan Discharge Patient Disposition: Home Clinical Impression: Closed head injury Condition: Stable Prescriptions: No Action pantoprazole 20 mg tablet,delayed release (DR/EC) 20 mg PO DAILY cholecalciferol (vitamin D3) 10 mcg (400 unit) capsule 10 mcg PO DAILY (DME) Left Hinged Knee Brace See Rx Instructions .Route .MEDSUPPLY Qty: 1 0RF Rx Instructions: As directed buspirone 30 mg tablet 30 mg PO BID lisinopril 10 mg tablet 10 mg PO DAILY guanfacine 1 mg tablet 1 mg PO TID Discharge Orders: Discharge ED (Routine); Ordered 10/18/24 Ordered By: aCrlos Downey Discharge Diet: Advance as tolerated Discharge Activity: Resume usual activity Patient Instructions: Head Injury (ED) Coding Level of Care Code ED Student Admissions Clerk for Daisy Bedoya
[2024-10-18] MEDS: metoclopramide 5 mg/mL SDV 2 mL 10 MG IM (10:39)
[2024-10-18] MEDS: diphenhydrAMINE 50 mg/mL SDV 1mL IM (10:39)
[2024-10-18] MEDS: ketorolac 30 mg/mL INJ IM (10:39)
[2024-10-18 11:46] VITALS: BP 101/70; PULSE 53; O2SAT 99
== END 2024-10-18 11:47 | disposition home or self-care (01) ==
PROVIDERS: Emergency Provider Emergency Medicine
DX: S09.8XXA Other specified injuries of head, initial encounter (principal); X58.XXXA Exposure to other specified factors, initial encounter
CPT/HCPCS: 70450; 96372; 99284; J1200; J1885; J2765

== ENCOUNTER 2024-10-26 22:35 | Emergency (ER) | payer OTHER, SELFPAY ==
[2024-10-26 22:38] VITALS: BP 126/81; PULSE 75; RESP 18; TEMP 36.6; O2SAT 97; BMI 41.9
--- NOTE | 2024-10-26 22:40 | ECG_ITS ---
[facility] Test Date: 2024-10-26 Pat Name: Damion Mckinnon Department: Room: Gender: Male Entry Level Manufacturing Engineer: : [id number] Requested By: Girma Martinez Order Number: [id number] Reading MD: DEMETRIA NICOLE Measurements Intervals [place] Rate: 78 P: 36 OK: 156 QRS: 99 QRSD: 122 T: 64 QT: 380 QTc: 434 Interpretive Statements SINUS RHYTHM BORDERLINE RIGHT AXIS DEVIATION [QRS AXIS > 90] MODERATE INTRAVENTRICULAR CONDUCTION DELAY [110+ ms QRS DURATION] Compared to ECG 12/22/2023 06:54:27 Intraventricular conduction delay now present Electronically Signed On 10-26-2024 23:18:46 APPLICATION TESTER by DEMETRIA NICOLE [email or web address]
--- NOTE | 2024-10-26 22:55 | XRR_ITS ---
PROCEDURE INFORMATION: Exam: XR Chest Exam date and time: 10/27/2024 12:36 AM Age: 44 years old Clinical indication: Chest pressure; Patient HX: C/O chest pain; Additional info: Cp TECHNIQUE: Imaging protocol: Radiologic exam of the chest. Views: 1 view. COMPARISON: CR XR chest 1V portable [id number] 12/22/2023 7:31 AM FINDINGS: Lungs: Unremarkable. No consolidation. Pleural spaces: Unremarkable. No pleural effusion. No pneumothorax. Heart/Mediastinum: Unremarkable. No cardiomegaly. Bones/joints: Unremarkable. XR/XR chest 1V portable [id number] IMPRESSION: No acute findings.
[2024-10-26 23:09] LABS: Basophils % 0.5 %; Eosinophils # 0.2 10^3/uL (0.0-0.8); Eosinophils % 2.7 %; Hematocrit 42.7 % (37-53); Lymphocytes # 2.9 10^3/uL (0.8-4.8); Lymphocytes % 37.9 %; Mean Corpuscular HGB Conc 33.5 g/dL (30-55); Mean Corpuscular Hemoglobin 29.5 pg (27-33); Mean Platelet Volume 9.8 fL (7.4-10.4); Monocytes # 0.8 10^3/uL (0.2-0.9); Monocytes % 10.1 %; Neutrophils # 3.75 10^3/uL (1.8-7.7); Neutrophils % 48.4 %; Nucleated Red Blood Cells % 0 %; Platelet Count 240 10^3/cmm (157-399); Red Blood Count 4.85 10^6/uL (3.85-5.65); Red Cell Distribution Width 11.8 % (12.1-15.1); White Blood Count 7.75 10^3/uL (3.29-11.43)
[2024-10-26 23:43] LABS: Anion Gap 12.8 (5-19); Blood Urea Nitrogen 13 mg/dL (6-20); Calcium 9.4 mg/dL (8.5-10.5); Carbon Dioxide 26 mmol/L (22-29); Chloride 101 mmol/L (98-107); Creatinine Clr Calc Pharmacy 180.8126; Glomerular Filtration Rate 123.1 mL/min (90-130); Glucose 139 mg/dL (65-115); Osmolality Calculated 284 mOsm/kg (285-295); Potassium 3.8 mmol/L (3.5-5.1); Sodium 136 mmol/L (136-145); Troponin(5th) Baseline < 6 ng/L (0-15)
[2024-10-27 01:42] LABS: Troponin 5 2HR Delta 0.30001 ABS# (0-10)
--- NOTE | 2024-10-27 02:07 | ED_ITS ---
HPI - Chest Pain 2 General: Chief Complaint: Chest Pain Stated Complaint: Chest Pain Time Seen by Provider: 10/27/24 02:11 History of Present Illness: Patient presents to the ER with complaints of substernal chest pain that started about 6:30 PM while he is resting in his recliner. Patient underlies stress as his is in the ICU currently. Patient does have a history of anxiety. Patient says the chest pain is worse when he takes a big deep breath or pushes on his chest. Patient denies any shortness of breath diaphoresis nausea vomiting. Related Data Home Medications Medication Instructions Recorded Confirmed cholecalciferol (vitamin D3) 10 10 mcg PO DAILY 04/24/24 10/18/24 mcg (400 unit) capsule pantoprazole 20 mg tablet,delayed 20 mg PO DAILY 04/24/24 10/18/24 release buspirone 30 mg tablet 30 mg PO BID 10/18/24 10/18/24 guanfacine 1 mg tablet 1 mg PO TID 10/18/24 10/18/24 lisinopril 10 mg tablet 10 mg PO DAILY 10/18/24 10/18/24 Previous Rx's Medication Instructions Recorded Left Hinged Knee Brace #1 ea 08/17/24 meloxicam 7.5 mg tablet 7.5 mg PO .Twice daily #14 tabs 10/27/24 Allergies Allergy/AdvReac Type Severity Reaction Status Date / Time Penicillins Allergy Unknown Verified 08/14/24 13:08 Review of Systems 2 General: Reports: 10 or more systems reviewed and unremarkable except in HPI and below PFSH ED 2 PFSH: Medical History Psychiatric care Social History Smoking and tobacco/nicotine status: never used tobacco/nicotine Physical Exam 2 Const: COMMON NORMALS: no acute distress, average body habitus, patient oriented x3, no limitations, healthy appearing, alert and well nourished HENMT: COMMON NORMALS: normocephalic, atraumatic, hearing grossly normal bilaterally, external ears normal, Normal external nose present and moist oral mucous membranes HEAD & SCALP: normocephalic and atraumatic NOSE: Normal external nose present EXTERNAL EAR: Yes external ears normal Neck/C-Spine: COMMON NORMALS: no JVD Chest: COMMONS NORMALS: normal inspection of the chest; negative for normal palpation of entire chest wall (Palpation over the costochondral margins of the sternum reproduces pain.) Resp: COMMON NORMALS: normal respiratory effort, No retractions, No use of accessory muscles and clear to auscultation bilaterally AUSCULTATION: clear to auscultation bilaterally Cardio: COMMON NORMALS: no JVD, regular rate, regular rhythm, S1 normal heart sound present, S2 normal heart sound present, No gallops present (Cardio), No clicks present (Cardio), No murmurs present (Cardio) and No rub (Cardio) R ATE: regular rate RHYTHM: regular rhythm HEART SOUNDS: S1 normal heart sound present and S2 normal heart sound present GI: COMMON NORMALS: Normal to inspection, nondistended, normoactive bowel sounds present, Soft to palpation, non-tender, No hepatosplenomegaly present and no masses PALPATION: Yes Soft to palpation and Yes No hepatosplenomegaly present Neuro: COMMON NORMALS: patient oriented x3 SENSORIUM/ORIENTATION: Yes alert Course 2 Vital Signs: Vital signs: Vital Signs Temperature 97.9 F 10/26/24 22:38 Pulse Rate 71 10/27/24 02:31 Respiratory Rate 18 10/26/24 22:38 Blood Pressure 153/98 10/27/24 02:31 Pulse Oximetry 100 10/27/24 02:31 Oxygen Delivery Me thod Room Air 10/26/24 22:38 MDM - Chest Pain Medical Decision Making Patient comes to the ER with chest pain is reproducible with palpation over the sternal margins. Chest pain workup otherwise was essentially negative. Patient be given meloxicam and discharged home. Medical Records I reviewed the patient's medical records. Lab Data I reviewed the patient's lab results. 10/26/24 23:03 10/26/24 23:03 Radiology Impressions Chest X-Ray 10/26/24 22:55 IMPRESSION: No acute findings. Laboratory Results WBC 7.75 10^3/uL (3.29-11.43) 10/26/24 23:03 RBC 4.85 10^6/uL (3.85-5.65) 10/26/24 23:03 Hgb 14.30 g/dL (11.27-16.99) 10/26/24 23:03 Hct 42.7 % (37-53) 10/26/24 23:03 MCV 88.0 fl (82-101) 10/26/24 23:03 MCH 29.5 pg (27-33) 10/26/24 23:03 MCHC 33.5 g/dL (30-55) 10/26/24 23:03 RDW 11.8 % (12.1-15.1) L 10/26/24 23:03 Plt Count 240 10^3/cmm (157-399) 10/26/24 23:03 MPV 9.8 fL (7.4-10.4) 10/26/24 23:03 Neut % (Auto) 48.4 % 10/26/24 23:03 Lymph % (Auto) 37.9 % 10/26/24 23:03 Wright % (Auto) 10.1 % 10/26/24 23:03 Eos % (Auto) 2.7 % 10/26/24 23:03 Baso % (Auto) 0.5 % 10/26/24 23:03 Neut # (Auto) 3.75 10^3/uL (1.8-7.7) 10/26/24 23:03 Lymph # (Auto) 2.9 10^3/uL (0.8-4.8) 10/26/24 23:03 Wright # (Auto) 0.8 10^3/uL (0.2-0.9) 10/26/24 23:03 Eos # (Auto) 0.2 10^3/uL (0.0-0.8) 10/26/24 23:03 Baso # (Auto) 0.0 10^3/uL (0.0-0.1) 10/26/24 23:03 Nucleated RBC % (auto) 0 % 10/26/24 23:03 Nucleated RBCs # 0.0 /100WBC 10/26/24 23:03 Sodium 136 mmol/L (136-145) 10/26/24 23:03 Potassium 3.8 mmol/L (3.5-5.1) 10/26/24 23:03 Chloride 101 mmol/L (98-107) 10/26/24 23:03 Carbon Dioxide 26 mmol/L (22-29) 10/26/24 23:03 Anion Gap 12.8 (5-19) 10/26/24 23:03 BUN 13 mg/dL (6-20) 10/26/24 23:03 Creatinine 0.7 mg/dL (0.7-1.2) 10/26/24 23:03 GFR Calculation 123.1 mL/min (90-130) 10/26/24 23:03 Glucose 139 mg/dL (65-115) H 10/26/24 23:03 Calculated Osmolality 284 mOsm/kg (285-295) L 10/26/24 23:03 Calcium 9.4 mg/dL (8.5-10.5) 10/26/24 23:03 Troponin T Baseline < 6 ng/L (0-15) 10/26/24 23:03 Troponin T 120 Minute 6.30 ng/L (0-15) 10/27/24 01:11 Delta Troponin T 0.05104 ABS# (0-10) 10/27/24 01:11 All radiology interpretation(s) finalized by discharge Discharge Plan Discharge Patient Disposition: Home Clinical Impression: Acute chest wall pain Condition: Stable Prescriptions: New meloxicam 7.5 mg tablet 7.5 mg PO .Twice daily Qty: 14 0RF No Action pantoprazole 20 mg tablet,delayed release (DR/EC) 20 mg PO DAILY cholecalciferol (vitamin D3) 10 mcg (400 unit) capsule 10 mcg PO DAILY (DME) Left Hinged Knee Brace See Rx Instructions .Route .MEDSUPPLY Qty: 1 0RF Rx Instructions: As directed buspirone 30 mg tablet 30 mg PO BID lisinopril 10 mg tablet 10 mg PO DAILY guanfacine 1 mg tablet 1 mg PO TID Discharge Orders: Discharge ED (Routine); Ordered 10/27/24 Ordered By: Girma Martinez Patient Instructions: Chest Pain - Chest Wall Activity Restrictions/Additional Instructions: Thank you for choosing [facility] for your healthcare needs today. Please realize that you were seen in the emergency department and that we are providing you with an emergency medical screening exam and this may not be a complete and all exclusive of all testing and/or medical workup we may need to determine your element or severity of your illness. It is very important that you follow-up as instructed with your primary care provider or specialist for the additional evaluation and to discuss your medical treatment plan. You may return to the emergency department should you have concerns or if your condition changes or worsens in any way. Stand Alone Forms: Work/School Release Coding Level of Care Code ED Roll Operator for Daisy Bedoya
[2024-10-27] MEDS: meloxicam 7.5 mg tablet 15 MG PO (02:27)
[2024-10-27 02:31] VITALS: BP 153/98; PULSE 71; O2SAT 100
== END 2024-10-27 02:30 | disposition home or self-care (01) ==
PROVIDERS: Emergency Provider Emergency Medicine
DX: R07.89 Other chest pain (principal)
CPT/HCPCS: 36415; 71045; 80048; 84484; 85025; 93005; 99285

== ENCOUNTER 2024-11-10 06:30 | Outpatient (RCR) | payer OTHER, SELFPAY | END 2024-12-07 23:59 | disposition home or self-care (01) | LOC: SPT 06:30 | PROVIDERS: Visit Provider Family Medicine | DX: M54.50 Low back pain, unspecified (principal); G89.29 Other chronic pain | CPT/HCPCS: 97161 ==

== ENCOUNTER 2024-12-08 06:30 | Outpatient (RCR) | payer OTHER, SELFPAY | END 2025-01-07 23:59 | disposition home or self-care (01) | LOC: SPT 06:30 | PROVIDERS: Visit Provider Family Medicine | DX: M54.50 Low back pain, unspecified (principal); G89.29 Other chronic pain | CPT/HCPCS: 97110 ==

== ENCOUNTER 2025-01-08 05:40 | Outpatient (RCR) | payer OTHER, SELFPAY | END 2025-01-23 11:29 | disposition home or self-care (01) | LOC: SPT 05:40 | PROVIDERS: Visit Provider Family Medicine | DX: M54.50 Low back pain, unspecified (principal); G89.29 Other chronic pain | CPT/HCPCS: 97110; 97150 ==

== ENCOUNTER → 2025-02-06 08:43 | Outpatient (BNVA) | payer OTHER, SELFPAY | PROVIDERS: PCP Family Medicine; Referring Provider Family Medicine; Visit Provider Psychiatry & Neurology Neurology | DX: G24.9 Dystonia, unspecified (principal); F95.1 Chronic motor or vocal tic disorder; F95.2 Tourette's disorder; M54.2 Cervicalgia | CPT/HCPCS: 36415; 82306; 82607; 83735; 83921; 84439; 84443; 84481 ==

== ENCOUNTER → 2025-07-17 13:39 | Outpatient (BNVA) | payer BC, MEDICAID, SELFPAY | PROVIDERS: PCP Family Medicine; Visit Provider Podiatrist Foot & Ankle Surgery | DX: M79.671 Pain in right foot (principal); M76.61 Achilles tendinitis, right leg | CPT/HCPCS: 73630 ==

== ENCOUNTER 2025-08-20 11:39 | Outpatient (CLI) | payer BC, MEDICAID, SELFPAY ==
--- NOTE | 2025-08-20 11:45 | MR_ITS ---
WS: [id number] EXAMINATION: MR ankle RT wo con* [id number] ORDER DATE: 08/20/2025 11:45 AM COMPARISON: None. HISTORY: Achilles tendon tear CONTRAST: None. TECHNIQUE: Axial proton density fat sat, axial T1, sagittal proton density, sagittal STIR, coronal T2 fat sat, and coronal T1 sequences performed. FINDINGS: Prior postoperative changes plate and screw fixation base of the first metatarsal extending into the cuneiforms and base of the second metatarsal. Prominent plantar calcaneal spur with plantar fasciitis along the medial bundle. Retrocalcaneal bursitis. Lobulated ganglion cyst at the posterior subtalar joint. Tenosynovitis involving the peroneal tendon sheath. Split tear involving the peroneal brevis. Tenosynovitis tibialis anterior. Normal ankle mortise. ATF appears intact. Tendinosis with increased intrasubstance signal involving the distal Achilles. Mild diffuse fusiform thickening of the Achilles tendon with peritendinitis. Fluid in the retrocalcaneal bursa compatible with retrocalcaneal bursitis. No high-grade tears. MR/MR ankle RT wo con* [id number] IMPRESSION: 1. Achilles tendinopathy and peritendinitis. Retrocalcaneal bursitis. 2. Split tear involving the peroneal brevis. 3. Plantar fasciitis involving the medial bundle with prominent plantar calcan eal spurring. 4. Tenosynovitis involving the tibialis anterior
== END 2025-08-20 11:40 | disposition home or self-care (01) ==
LOC: RAD 11:40
PROVIDERS: PCP Family Medicine; Visit Provider Podiatrist Foot & Ankle Surgery
DX: S86.019A Strain of unspecified Achilles tendon, initial encounter (principal); S86.311A Strain of muscle(s) and tendon(s) of peroneal muscle group at lower leg level, right leg, initial encounter; X58.XXXA Exposure to other specified factors, initial encounter; M76.61 Achilles tendinitis, right leg; M72.2 Plantar fascial fibromatosis; M65.861 Other synovitis and tenosynovitis, right lower leg
CPT/HCPCS: 73721